=== PATIENT | male | born 1965 | race Caucasian/White ===

== ENCOUNTER 2018-10-26 13:56 | Outpatient (CLI) | payer BC, OTHER ==
[2018-10-26 14:09] LABS: MEAN CORPUSCULAR HEMOGLOBIN 31.2 pg (28.0-34.0)
[2018-10-26 14:36] LABS: eGFR (Non-African) > 60
== END 2018-10-26 13:58 ==
LOC: LAB 13:56
PROVIDERS: ATTEND Family Medicine
DX: Z00.00 Encounter for general adult medical examination without abnormal findings (principal); E20.1 Pseudohypoparathyroidism
CPT/HCPCS: 36415; 80048; 80061; 83735; 85027

== ENCOUNTER 2018-11-04 08:14 | Outpatient (CLI) | payer BC ==
[2018-11-04 09:03] LABS: eGFR (Non-African) > 60
== END 2018-11-04 08:16 ==
LOC: LAB 08:14
PROVIDERS: ATTEND Family Medicine
DX: E83.51 Hypocalcemia (principal)
CPT/HCPCS: 36415; 80048

== ENCOUNTER 2018-12-01 08:41 | Outpatient (CLI) | payer BC ==
[2018-12-01 09:28] LABS: eGFR (Non-African) > 60
== END 2018-12-01 08:43 ==
LOC: LAB 08:41
PROVIDERS: ATTEND Internal Medicine Endocrinology, Diabetes & Metabolism
DX: E20.1 Pseudohypoparathyroidism (principal)
CPT/HCPCS: 36415; 80053

== ENCOUNTER 2019-02-10 09:12 | Outpatient (CLI) | payer BC ==
[2019-02-28 11:04] LABS: eGFR (Non-African) > 60
== END 2019-02-10 09:17 ==
LOC: LAB 09:12
PROVIDERS: ATTEND Internal Medicine Endocrinology, Diabetes & Metabolism
DX: E20.1 Pseudohypoparathyroidism (principal)
CPT/HCPCS: 36415; 80053

== ENCOUNTER 2019-07-19 13:16 | Outpatient (CLI) | payer BC ==
[2019-07-19 13:33] LABS: BASOPHILS % 0.4 % (0.0-1.5); NEUTROPHILS # 9.7 # k/uL (1.4-7.7)
[2019-07-19 14:57] LABS: eGFR (Non-African) 24
== END 2019-07-19 13:21 ==
LOC: LAB 13:16
PROVIDERS: ATTEND Family Medicine
DX: R11.10 Vomiting, unspecified (principal); R53.83 Other fatigue; Z12.5 Encounter for screening for malignant neoplasm of prostate
CPT/HCPCS: 36415; 80053; 84153; 84443; 85025